=== PATIENT | female | born 1970 | race Caucasian/White ===

== ENCOUNTER 2018-06-01 08:51 | Inpatient (IN) | payer OTHER ==
[~2018-06-01 08:51] MED LIST: CEFAZOLIN 2 GM/50 ML (PMX) 50 ML IVPB; SOD CHLORIDE 0.9% 1,000 ML IV
[2018-06-01] MEDS ORDERED: PROPOFOL 20 ML (10:11)
[2018-06-01] MEDS ORDERED: GLYCOPYRROLATE 0.4 MG INJ (10:11)
[2018-06-01] MEDS ORDERED: ROCURONIUM 50 MG INJ (10:11)
[2018-06-01] MEDS ORDERED: MIDAZOLAM 1 MG/ML 2 ML INJ (10:11)
[2018-06-01] MEDS ORDERED: NEOSTIGMINE 3 MG/3 ML SYRINGE (10:11)
[2018-06-01] MEDS ORDERED: LIDOCAINE 2% (SDV) 5 ML INJ (10:11)
[2018-06-01] MEDS ORDERED: FENTAnyl 50 MCG/ML VIAL (10:11)
[2018-06-01] MEDS ORDERED: DEXAMETHASONE 4 MG/ML 1 ML INJ (10:12)
[2018-06-01] MEDS ORDERED: ONDANSETRON 4 MG INJ (10:14)
[2018-06-01] MEDS ORDERED: CEFAZOLIN 1 GM INJ ×2 (10:35→10:36)
[2018-06-01] MEDS ORDERED: SUCCINYLCHOLINE CHLORIDE 100 MG/5 ML SYG IV (10:35)
[2018-06-01] MEDS ORDERED: ONDANSETRON 4 MG INJ IV (13:30)
[2018-06-01] MEDS ORDERED: ACETAMINOPHEN 1000MG/100ML IV 100 ML IVPB (13:30)
[2018-06-01] MEDS: morphine 2 MG INJ IV (14:18)
[2018-06-01] MEDS: D5W-0.45 NACL + KCL 20 MEQ 1,000 ML IV ×2 (14:59→22:14)
[2018-06-01] MEDS: HYDROCODONE/APAP (5/325) TAB PO (22:13)
[2018-06-02] MEDS: D5W-0.45 NACL + KCL 20 MEQ 1,000 ML IV ×2 (05:08→06:12)
[2018-06-02] MEDS: morphine 2 MG INJ IV (05:30)
[2018-06-02] MEDS: FERROUS SULFATE (EC) 325 MG TAB PO (09:12)
[2018-06-02] MEDS: LISINOPRIL 10 MG TAB PO (09:12)
== END 2018-06-02 14:37 | disposition home or self-care (01) | DRG 581 ==
LOC: REC 08:51 → PP2 14:12
PROC: 0HBT0ZZ Excision of Right Breast, Open Approach (ICD-10-PCS; principal; 2018-06-01 11:00)
PROC: 07B50ZX Excision of Right Axillary Lymphatic, Open Approach, Diagnostic (ICD-10-PCS; 2018-06-01 11:00)
DX: C50.911 Malignant neoplasm of unspecified site of right female breast (principal); I10 Essential (primary) hypertension; Z80.3 Family history of malignant neoplasm of breast; E03.9 Hypothyroidism, unspecified
CPT/HCPCS: 71045; 88307; 93005

== ENCOUNTER 2019-03-15 06:57 | Day surgery (SDC) | payer OTHER ==
[2019-03-15] MEDS ORDERED: MIDAZOLAM 1 MG/ML 2 ML INJ ×3 (09:42)
[2019-03-15] MEDS ORDERED: FENTAnyl 50 MCG/ML VIAL (09:42)
== END 2019-03-15 12:57 | disposition home or self-care (01) ==
LOC: GIL 06:57
DX: K64.8 Other hemorrhoids (principal); D50.9 Iron deficiency anemia, unspecified; K44.9 Diaphragmatic hernia without obstruction or gangrene; K21.9 Gastro-esophageal reflux disease without esophagitis; K29.60 Other gastritis without bleeding
CPT/HCPCS: 43239; 84703; 88305; 88312